=== PATIENT | female | born 1980 | race Caucasian/White ===

== ENCOUNTER 2016-04-02 14:24 | Emergency (ER) | payer OTHER ==
[2016-04-02] MEDS ORDERED: MORPHINE 2 MG/ML 1ML SYRINGE As Ordered ONE (15:10)
[2016-04-02] MEDS ORDERED: PROMETHAZINE INJ 25 MG/ML VIAL (J2550) As Ordered ONE (15:10)
--- NOTE | 2016-04-02 15:46 | REP ---
Head CT without contrast: History: Headache, foreign body. Comparison study: September 26, 2009. CT findings: Bone window settings demonstrate an intact bony calvarium. There is no evidence of skull fracture or incidental bony calvarial lesion. The visualized paranasal sinuses appear clear. No intraorbital abnormality is seen. On soft tissue window setting images; the lateral, third, and fourth ventricles are normal in size and position. Pierce-white differentiation pattern is normal above and below the tentorium. There are is no evidence of intracranial hemorrhage. No mass, edema, infarction, or midline shift is seen. No extra-axial fluid collection is appreciated. Impression: Negative noncontrast head CT. Signed by Nino Messer MD 04/02/2016 03:38 P
[2016-04-02 16:56] LABS: BASO # 0.1 K/mm3 (0.0-0.2); BASO % 0.8 % (0.0-1.0); EOS # 0.4 K/mm3 (0.0-0.50); EOS % 5.8 % (0.0-3.0); LARGE UNSTAINED CELL # 0.2 K/mm3 (0.0-0.4); LARGE UNSTAINED CELL % 2.3 % (0.0-4.0); LYMPH # 2.5 K/mm3 (1.5-4.5); LYMPH % 33.8 % (24.0-44.0); MEAN CORPUSCULAR HEMOGLOBIN 32.9 pg (27.0-33.0); MEAN CORPUSCULAR HGB CONC 34.4 g/dl (32.0-36.5); MEAN CORPUSCULAR VOLUME 95.8 fl (80.0-96.0); MONO # 0.3 K/mm3 (0.0-0.8); MONO % 4.4 % (0.0-5.0); NEUTROPHILS # 3.9 K/mm3 (1.8-7.7); NEUTROPHILS % 52.8 % (36.0-66.0); PLATELET COUNT, AUTOMATED 243 k/mm3 (150-450); RED CELL DISTRIBUTION WIDTH 12.1 % (11.5-14.5); WHITE BLOOD COUNT 7.3 K/mm3 (4.0-10.0)
[2016-04-02 16:57] LABS: ANION GAP 8 MEQ/L (8-16); BLOOD UREA NITROGEN 16 MG/DL (7-18); CALCIUM LEVEL 9.1 MG/DL (8.5-10.1); CARBON DIOXIDE LEVEL 27 MEQ/L (21-32); CHLORIDE LEVEL 107 MEQ/L (98-107); CREATININE FOR GFR 0.55 MG/DL (0.55-1.02); GLOMERULAR FILTRATION RATE > 60.0 (>60); GLUCOSE, FASTING 80 MG/DL (70-105); SODIUM LEVEL 142 MEQ/L (136-145)
--- NOTE | 2016-04-02 17:40 | EDDOCDS ---
Nurse's Notes [facility] Name: Briana Carmichael Age: 35 yrs Sex: Female : 1980 Arrival Date: 04/02/2016 Time: 14:24 Bed 6 Private MD: No Pcp Diagnosis: Headache Presentation: 04/02 14:31 Presenting complaint: Patient states: "My arm and my face is numb and it hurts. My eyes jc4 are blurry and stuff. It started at 1145 and it's just gotten worse". Presenting complaint: Patient states: that both sides of her face is numb and that her left arm is numb. Adult Sepsis Screening: The patient does not have new or worsening altered mentation. Patient's respiratory rate is less than 22. Systolic blood pressure is greater than 100. Patient has a qSOFA score of 0- Negative Sepsis Screen. Suicide/Homicide risk assessment- the patient denies having any suicidal and/or homicidal ideations and does not present with any other emotional, behavioral or mental health complaints. Status: Patient is not a consulting services associate or dependent. Transition of care: patient was not received from another setting of care. 14:31 Acuity: SAL Level 2 jc4 14:31 Method Of Arrival: Walkin/Carried/Asstd jc4 Triage Assessment: 14:33 General: Appears uncomfortable. Pain: Location: pain behind both eyes Pain currently is jc4 8 out of 10 on a pain scale. Pt Declines HIV testing. 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 none - PMHx: Hiatal Hernia; Migraine Headaches; - PSHx: Tubal ligation; - Social history: Smoking status: Patient uses tobacco products, light tobacco smoker. No barriers to communication noted, The patient speaks fluent Czech. - Family history: Not pertinent. - : The pt / caregiver states he / she is not on anticoagulants. Home medication list is obtained from the patient. - Exposure Risk Screening:: None identified. Screenin:47 Screening information is obtained from the patient. Fall risk: No risks identified. [facility] Assistance ADL's: requires no assistance with activities of daily living. Abuse/DV Screen: The patient / caregiver reports he/she is: not in a situation that causes fear, pain or injury. Nutritional screening: No deficits noted. Advance Directives: There is no active DNR order. home support is adequate. Assessment: 15:01 General: Appears in no apparent distress, comfortable, Behavior is appropriate for age, [facility] cooperative. Pain: Location: head Pain currently is 8 out of 10 on a pain scale. Neurological: Level of Consciousness is awake, alert, Oriented to person, place, time, Claim Analyst are equal bilaterally Moves all extremities. Gait is steady, Speech is normal, Facial symmetry appears normal, Facial symmetry: tongue is midline, Pupils are PERRLA. Respiratory: Airway is patent Respiratory effort is even, unlabored, Respiratory pattern is regular, symmetrical. GI: Abdomen is flat, non- distended Bowel sounds present X 4 quads. Abd is soft and non tender X 4 quads. Derm: Skin is pink, warm & dry. 15:20 General: transported to CT via tech. [facility] 15:46 General: returned from CT, tolerated well. [facility] 16:30 General: quiet in room, denies needs at present, awaiting results and further testing. [facility] 17:08 General: Appears in no apparent distress, pt states she has to leave, states she has 2 mk4 disabled children at home and she has to go home and take care of them, IV discontinued left AC . Vital Signs: 14:26 BP 122 / 67; Pulse 82; Resp 18 S; Temp 96.5(O); Pulse Ox 100% on R/A; Weight 49.9 kg gr2 (R); Height 5 ft. 1 in. (154.94 cm) (R); Pain 7/10; 14:45 BP 127 / 82 (auto/); [facility] 14:47 Pulse 74 MON; Pulse Ox 99% ; [facility] 15:20 Pain 8/10; jf3 16:00 BP 108 / 64 (auto/); mk4 16:01 Pulse 62 MON; Pulse Ox 99% ; mk4 16:15 BP 124 / 75 (auto/); mk4 16:15 Pulse 66 MON; Pulse Ox 99% ; mk4 16:30 BP 120 / 74 (auto/); mk4 16:31 Pulse 64 MON; Pulse Ox 99% ; mk4 16:45 BP 117 / 75 (auto/); mk4 16:46 Pulse 64 MON; Pulse Ox 100% ; mk4 14:26 Body Mass Index 20.78 (49.90 kg, 154.94 cm) gr2 Vitals: 14:26 Log In Time: April 02, 2016 at 14:26. RN notified that patient meets Red Flag gr2 criteria. 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 gr2 14:26 No Pcp is Private Physician. gr2 14:26 Patient moved to Waiting gr2 14:29 Patient visited by Sumanth Garay. gr2 14:29 Patient moved to Pre RCE gr2 14:32 Triage Initiated jc4 14:41 Patient moved to 6 [facility] 14:47 The patient / caregiver is instructed regarding the plan of care and ED course. Patient [facility] has correct armband on for positive identification. Placed in gown. Bed in low position. Call light in reach. Side rails up X2. hospital monitor on. Pulse ox on. Cardiac monitoring not applicable on this patient. 14:47 Inserted saline lock: 18 gauge in right antecubital area and blood collected. The [facility] patient tolerated the procedure well. Labs drawn. (by ED staff). Sent per order to lab. 15:12 EKG done. (by ED staff). Reviewed by Lori Oneill MD. ct3 15:13 Patient visited by Brook Alvarado PCA. ct3 15:46 Patient visited by Aurora Sales RN. [facility] 15:55 CT Head Without Contrast Returned. EDMS 16:30 Zach Mora MD is Attending Physician. br1 16:38 Patient visited by Zach Mora MD. br1 17:08 Patient visited by Miriam Pryor RN. mk4 17:10 [facility] [place] Payment Agreement was scanned into [email or web address] and attached to record. zo 17:29 Aurora Sales,JULIO is Primary Nurse. cj 17:38 [facility] is Referral Physician. br1 Administered Medications: 15:21 Drug: morphine 2 mg [morphine 2 mg/mL intravenous cartridge (1 mL)] Route: IVP; Site: 3 right antecubital; 15:25 Drug: Promethazine 12.5 mg [promethazine 25 mg/mL injection solution (0.5 mL)] Route: jf3 IVP; Site: right antecubital; 16:26 Follow up: finished infusion srm Intake: Order Results: Lab Order: CBC with Diff; SPEC'M 04/02/16 14:57 Test: WHITE BLOOD COUNT; Value: 7.3; Range: 4.0-10.0; Units: K/mm3; Status: F Test: RED BLOOD COUNT; Value: 4.15; Range: 4.00-5.40; Units: M/mm3; Status: F Test: HEMOGLOBIN; Value: 13.7; Range: 12.0-16.0; Units: g/dl; Status: F Test: HEMATOCRIT; Value: 39.7; Range: 36.0-47.0; Units: %; Status: F Test: MEAN CORPUSCULAR VOLUME; Value: 95.8; Range: 80.0-96.0; Units: fl; Status: F Test: MEAN CORPUSCULAR HEMOGLOBIN; Value: 32.9; Range: 27.0-33.0; Units: pg; Status: F Test: MEAN CORPUSCULAR HGB CONC; Value: 34.4; Range: 32.0-36.5; Units: g/dl; Status: F Test: RED CELL DISTRIBUTION WIDTH; Value: 12.1; Range: 11.5-14.5; Units: %; Status: F Test: PLATELET COUNT, AUTOMATED; Value: 243; Range: 150-450; Units: k/mm3; Status: F Test: NEUTROPHILS %; Value: 52.8; Range: 36.0-66.0; Units: %; Status: F Test: LYMPH %; Value: 33.8; Range: 24.0-44.0; Units: %; Status: F Test: MONO %; Value: 4.4; Range: 0.0-5.0; Units: %; Status: F Test: EOS %; Value: 5.8; Range: 0.0-3.0; Abnormal: Above high normal; Units: %; Status: F Test: BASO %; Value: 0.8; Range: 0.0-1.0; Units: %; Status: F Test: LARGE UNSTAINED CELL %; Value: 2.3; Range: 0.0-4.0; Units: %; Status: F Test: NEUTROPHILS #; Value: 3.9; Range: 1.8-7.7; Units: K/mm3; Status: F Test: LYMPH #; Value: 2.5; Range: 1.5-4.5; Units: K/mm3; Status: F Test: MONO #; Value: 0.3; Range: 0.0-0.8; Units: K/mm3; Status: F Test: EOS #; Value: 0.4; Range: 0.0-0.50; Units: K/mm3; Status: F Test: BASO #; Value: 0.1; Range: 0.0-0.2; Units: K/mm3; Status: F Test: LARGE UNSTAINED CELL #; Value: 0.2; Range: 0.0-0.4; Units: K/mm3; Status: F Lab Order: [facility]; SPEC'M 04/02/16 14:57 Test: GLUCOSE, FASTING; Value: 80; Range: 70-105; Units: MG/DL; Status: F Test: BLOOD UREA NITROGEN; Value: 16; Range: 7-18; Units: MG/DL; Status: F Test: CREATININE FOR GFR; Value: 0.55; Range: 0.55-1.02; Units: MG/DL; Status: F Test: GLOMERULAR FILTRATION RATE; Value: > 60.0; Range: >60; Status: F Test: SODIUM LEVEL; Value: 142; Range: 136-145; Units: MEQ/L; Status: F Test: POTASSIUM SERUM; Value: 4.0; Range: 3.5-5.1; Units: MEQ/L; Status: F Test: CHLORIDE LEVEL; Value: 107; Range: 98-107; Units: MEQ/L; Status: F Test: CARBON DIOXIDE LEVEL; Value: 27; Range: 21-32; Units: MEQ/L; Status: F Test: ANION GAP; Value: 8; Range: 8-16; Units: MEQ/L; Status: F Test: CALCIUM LEVEL; Value: 9.1; Range: 8.5-10.1; Units: MG/DL; Status: F Test Note: ; Units are mL/min/1.73 m2 Chronic Kidney Disease Staging per NKF: Stage I & II GFR >=60 Normal to Mildly Decreased Stage III GFR 30-59 Moderately Decreased Stage IV GFR 15-29 Severely Decreased Stage V GFR <15 Very Little GFR Left ESRD GFR <15 on 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 There; is no evidence of skull fracture or incidental bony calvarial lesion. The; visualized paranasal sinuses appear clear. No intraorbital abnormality is seen.; On soft tissue window setting images; the lateral, third, and fourth ventricles; are normal in size and position. Pierce-white differentiation pattern is normal; above and below the tentorium. There are is no evidence of intracranial; hemorrhage. No mass, edema, infarction, or midline shift is seen. No; extra-axial fluid collection is appreciated.; ; Impression:; ; Negative noncontrast head CT.; ; ; Signed by; Nino Messer MD 04/02/2016 03:38 P; Outcome: 17:09 Discharge Assessment: Patient awake, alert and oriented x 3. No cognitive and/or mk4 functional deficits noted. Patient verbalized understanding of disposition instructions. Patient awake and alert. The patient is leaving AMA: AMA form signed, Notification of AMA status is made to the charge nurse, the social worker health services, the ED attending physician. Condition: stable. Property sent home with patient. 17:38 Patient left against medical advice. br1 17:39 Patient left the ED. mk4 Signatures: Dispatcher [employer] EDMS Lisa Kulkarni, RN Andrew Chow Brian, MD MD br1 Tamar Dow RN RN jc4 Brook Alvarado, KASIA CLIENT SERVICE COORDINATOR ct3 Aurora SalesRN RN mmeo Sumanth Garay gr2 Miriam Pryor RN RN mk4 Ty Diaz RN RN jf3 MTDD
--- NOTE | 2016-04-02 17:40 | EDDOCDS ---
Physician Documentation [facility] Name: Briana Carmichael Age: 35 yrs Sex: Female : 1980 Arrival Date: 04/02/2016 Time: 14:24 Bed 6 Private MD: No Pcp Disposition: 04/02/16 17:38 Patient has left against medical advice. Impression: Headache. - Patients states they are going to Home/Self Care. - Condition is Stable. - Discharge Instructions: General Headache Without Cause. Medication Reconciliation, Local Pharmacy Hours form. Follow up: [facility]; When: As soon as possible; Reason: Recheck today's complaints. - Problem is new. - Symptoms are unchanged. Historical: - Allergies: Ibuprofen (Rash); - Home Meds: 1. none - PMHx: Hiatal Hernia; Migraine Headaches; - PSHx: Tubal ligation; - Social history: Smoking status: Patient uses tobacco products, light tobacco smoker. No barriers to communication noted, The patient speaks fluent [place]. - Family history: Not pertinent. - : The pt / caregiver states he / she is not on anticoagulants. Home medication list is obtained from the patient. - Exposure Risk Screening:: None identified. 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 1 in. 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 EDMS 15:06 morphine 2 mg IVP once ordered. fg 15:06 Promethazine 12.5 mg IVP once; dilute and administer 30-60 minutes ordered. fg 15:06 IV Saline Lock ordered. fg 15:07 CT Head Without Contrast Ordered. EDMS 16:38 NS 0.9% 1000 ml IV at 150 mL/hr continuous ordered. br1 16:39 CBC with Diff Ordered. EDMS 16:39 BMP Ordered. EDMS 16:39 MRI Screening Tool - Place on chart, inform RN ordered. br1 16:40 -MRA-Brain without contrast Ordered. EDMS 16:40 -MRI-Brain without Ordered. EDMS 16:51 MRI Screening Tool - Place on chart, inform RN complete. ct3 17:09 Financial registration complete. zo 17:10 [facility] Payment Agreement was scanned into [employer] and attached to record. zo 17:36 CBC with Diff Reviewed. br1 17:36 BMP Reviewed. br1 17:36 CT Head Without Contrast Reviewed. br1 Administered Medications: 15:21 Drug: morphine 2 mg [morphine 2 mg/mL intravenous cartridge (1 mL)] Route: IVP; Site: jf3 right antecubital; 15:25 Drug: Promethazine 12.5 mg [promethazine 25 mg/mL injection solution (0.5 mL)] Route: jf3 IVP; Site: right antecubital; 16:26 Follow up: finished infusion srm Signatures: Dispatcher [employer] EDMS Andrew Ash Brian, MD MD br1 Tamar Dow RN RN jc4 Brook Alvarado, RIGGING MAN RIGGING MAN ct3 Aurora Sales RN RN [facility] Miriam Pryor RN RN mk4 Lori Oneill MD MD Lisa Kulkarni RN, Justin RN jf3 The chart was reviewed and I authenticate all verbal orders and agree with the evaluation and treatment provided.Attachments: 17:10 [facility] Payment Agreement zo MTDD
--- NOTE | 2016-04-03 08:07 | ECGEPIP ---
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
--- NOTE | 2016-04-04 18:40 | EDDOCDS ---
Physician Documentation [facility] Name: Briana Carmichael Age: 35 yrs Sex: Female : 1980 Arrival Date: 04/02/2016 Time: 14:24 Bed 6 Private MD: No Pcp Disposition: 04/02/16 17:38 Patient has left against medical advice. Impression: Headache. - Patients states they are going to Home/Self Care. - Condition is Stable. - Discharge Instructions: General Headache Without Cause. Medication Reconciliation, Local Pharmacy Hours form. Follow up: [facility]; When: As soon as possible; Reason: Recheck today's complaints. - Problem is new. - Symptoms are unchanged. Historical: - Allergies: Ibuprofen (Rash); - Home Meds: 1. none - PMHx: Hiatal Hernia; Migraine Headaches; - PSHx: Tubal ligation; - Social history: Smoking status: Patient uses tobacco products, light tobacco smoker. No barriers to communication noted, The patient speaks fluent [place]serr[place]. - Family history: Not pertinent. - : The pt / caregiver states he / she is not on anticoagulants. Home medication list is obtained from the patient. - Exposure Risk Screening:: None identified. 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 1 in. 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 EDMS 15:06 morphine 2 mg IVP once ordered. fg 15:06 Promethazine 12.5 mg IVP once; dilute and administer 30-60 minutes ordered. fg 15:06 IV Saline Lock ordered. fg 15:07 CT Head Without Contrast Ordered. EDMS 16:38 NS 0.9% 1000 ml IV at 150 mL/hr continuous ordered. br1 16:39 CBC with Diff Ordered. EDMS 16:39 BMP Ordered. EDMS 16:39 MRI Screening Tool - Place on chart, inform RN ordered. br1 16:40 -MRA-Brain without contrast Ordered. EDMS 16:40 -MRI-Brain without Ordered. EDMS 16:51 MRI Screening Tool - Place on chart, inform RN complete. ct3 17:09 Financial registration complete. zo 17:10 [facility] [place] Agreement was scanned into [employer] and attached to record. zo 17:36 CBC with Diff Reviewed. br1 17:36 BMP Reviewed. br1 17:36 CT Head Without Contrast Reviewed. br1 04/03 11:45 Refusal of Services was scanned into [employer] and attached to record. gb 11:45 T-Sheet-- Draft Copy was scanned into [employer] and attached to record. gb 11:45 ECG/EKG was scanned into [employer] and attached to record. gb Administered Medications: 04/02 15:21 Drug: morphine 2 mg [morphine 2 mg/mL intravenous cartridge (1 mL)] Route: IVP; Site: jf3 right antecubital; 15:25 Drug: Promethazine 12.5 mg [promethazine 25 mg/mL injection solution (0.5 mL)] Route: jf3 IVP; Site: right antecubital; 16:26 Follow up: finished infusion srm Signatures: Dispatcher [employer] EDLili King, Reg Reg Andrew Finn Brian, MD MD br1 Tamar Dow, RN RN jc4 Jenny, Brook, RV REPAIRER RV REPAIRER ct3 Aurora SalesRN RN cj Miriam Pryor RN RN mk4 Lori Oneill MD MD Shad, Lisa RN [facility] yT Diaz RN jf3 The chart was reviewed and I authenticate all verbal orders and agree with the evaluation and treatment provided.Attachments: 17:10 [facility] Payment Agreement zo 11:45 T-Sheet-- Draft Copy gb 11:45 ECG/EKG gb Chart Complete MTDD
--- NOTE | 2016-04-04 18:40 | EDDOCDS ---
Physician Documentation [facility] Name: Briana Carmichael Age: 35 yrs Sex: Female : 1980 Arrival Date: 04/02/2016 Time: 14:24 Bed 6 Private MD: No Pcp Disposition: 04/02/16 17:38 Patient has left against medical advice. Impression: Headache. - Patients states they are going to Home/Self Care. - Condition is Stable. - Discharge Instructions: General Headache Without Cause. Medication Reconciliation, Local Pharmacy Hours form. Follow up: [facility]; When: As soon as possible; Reason: Recheck today's complaints. - Problem is new. - Symptoms are unchanged. Historical: - Allergies: Ibuprofen (Rash); - Home Meds: 1. none - PMHx: Hiatal Hernia; Migraine Headaches; - PSHx: Tubal ligation; - Social history: Smoking status: Patient uses tobacco products, light tobacco smoker. No barriers to communication noted, The patient speaks fluent Czech. - Family history: Not pertinent. - : The pt / caregiver states he / she is not on anticoagulants. Home medication list is obtained from the patient. - Exposure Risk Screening:: None identified. 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 1 in. 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 EDMS 15:06 morphine 2 mg IVP once ordered. fg 15:06 Promethazine 12.5 mg IVP once; dilute and administer 30-60 minutes ordered. fg 15:06 IV Saline Lock ordered. fg 15:07 CT Head Without Contrast Ordered. EDMS 16:38 NS 0.9% 1000 ml IV at 150 mL/hr continuous ordered. br1 16:39 CBC with Diff Ordered. EDMS 16:39 BMP Ordered. EDMS 16:39 MRI Screening Tool - Place on chart, inform RN ordered. br1 16:40 -MRA-Brain without contrast Ordered. EDMS 16:40 -MRI-Brain without Ordered. EDMS 16:51 MRI Screening Tool - Place on chart, inform RN complete. ct3 17:09 Financial registration complete. zo 17:10 [facility] [place] [place] Payment Agreement was scanned into [employer] and attached to record. zo 17:36 CBC with Diff Reviewed. br1 17:36 BMP Reviewed. br1 17:36 CT Head Without Contrast Reviewed. br1 04/03 11:45 Refusal of Services was scanned into [employer] and attached to record. gb 11:45 T-Sheet-- Draft Copy was scanned into [employer] and attached to record. gb 11:45 ECG/EKG was scanned into [employer] and attached to record. gb Administered Medications: 04/02 15:21 Drug: morphine 2 mg [morphine 2 mg/mL intravenous cartridge (1 mL)] Route: IVP; Site: jf3 right antecubital; 15:25 Drug: Promethazine 12.5 mg [promethazine 25 mg/mL injection solution (0.5 mL)] Route: jf3 IVP; Site: right antecubital; 16:26 Follow up: finished infusion srm Signatures: Dispatcher [employer] EDLili King, Reg Reg Andrew Finn Brian, MD MD br1 Tamar Dow, RN RN jc4 Jenny, Brook, LEAD TANK MECHANIC LEAD TANK MECHANIC ct3 Aurora SalesRN RN cj Miriam Pryor RN RN mk4 Lori Oneill MD MD Shad, Lisa RN [facility] Ty Diaz RN jf3 The chart was reviewed and I authenticate all verbal orders and agree with the evaluation and treatment provided.Attachments: 17:10 [facility] [place] [place] Payment Agreement zo 11:45 T-Sheet-- Draft Copy gb 11:45 ECG/EKG gb Chart Complete MTDD
--- NOTE | 2016-04-04 18:40 | EDDOCDS ---
Nurse's Notes [facility] Name: Jessa Carmichael Age: 35 yrs Sex: Female : 1980 Arrival Date: 04/02/2016 Time: 14:24 Bed 6 Private MD: No Pcp Diagnosis: Headache Presentation: 04/02 14:31 Presenting complaint: Patient states: "My arm and my face is numb and it hurts. My eyes jc4 are blurry and stuff. It started at 1145 and it's just gotten worse". Presenting complaint: Patient states: that both sides of her face is numb and that her left arm is numb. Adult Sepsis Screening: The patient does not have new or worsening altered mentation. Patient's respiratory rate is less than 22. Systolic blood pressure is greater than 100. Patient has a qSOFA score of 0- Negative Sepsis Screen. Suicide/Homicide risk assessment- the patient denies having any suicidal and/or homicidal ideations and does not present with any other emotional, behavioral or mental health complaints. Status: Patient is not a clinical services professional or dependent. Transition of care: patient was not received from another setting of care. 14:31 Acuity: SAL Level 2 jc4 14:31 Method Of Arrival: Walkin/Carried/Asstd jc4 Triage Assessment: 14:33 General: Appears uncomfortable. Pain: Location: pain behind both eyes Pain currently is jc4 8 out of 10 on a pain scale. Pt Declines HIV testing. 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 none - PMHx: Hiatal Hernia; Migraine Headaches; - PSHx: Tubal ligation; - Social history: Smoking status: Patient uses tobacco products, light tobacco smoker. No barriers to communication noted, The patient speaks fluent Urdu. - Family history: Not pertinent. - : The pt / caregiver states he / she is not on anticoagulants. Home medication list is obtained from the patient. - Exposure Risk Screening:: None identified. Screenin:47 Screening information is obtained from the patient. Fall risk: No risks identified. [facility] Assistance ADL's: requires no assistance with activities of daily living. Abuse/DV Screen: The patient / caregiver reports he/she is: not in a situation that causes fear, pain or injury. Nutritional screening: No deficits noted. Advance Directives: There is no active DNR order. home support is adequate. Assessment: 15:01 General: Appears in no apparent distress, comfortable, Behavior is appropriate for age, [facility] cooperative. Pain: Location: head Pain currently is 8 out of 10 on a pain scale. Neurological: Level of Consciousness is awake, alert, Oriented to person, place, time, Branch Manager are equal bilaterally Moves all extremities. Gait is steady, Speech is normal, Facial symmetry appears normal, Facial symmetry: tongue is midline, Pupils are PERRLA. Respiratory: Airway is patent Respiratory effort is even, unlabored, Respiratory pattern is regular, symmetrical. GI: Abdomen is flat, non- distended Bowel sounds present X 4 quads. Abd is soft and non tender X 4 quads. Derm: Skin is pink, warm & dry. 15:20 General: transported to CT via tech. [facility] 15:46 General: returned from CT, tolerated well. [facility] 16:30 General: quiet in room, denies needs at present, awaiting results and further testing. [facility] 17:08 General: Appears in no apparent distress, pt states she has to leave, states she has 2 mk4 disabled children at home and she has to go home and take care of them, IV discontinued left AC . Vital Signs: 14:26 BP 122 / 67; Pulse 82; Resp 18 S; Temp 96.5(O); Pulse Ox 100% on R/A; Weight 49.9 kg gr2 (R); Height 5 ft. 1 in. (154.94 cm) (R); Pain 7/10; 14:45 BP 127 / 82 (auto/); [facility] 14:47 Pulse 74 MON; Pulse Ox 99% ; [facility] 15:20 Pain 8/10; jf3 16:00 BP 108 / 64 (auto/); mk4 16:01 Pulse 62 MON; Pulse Ox 99% ; mk4 16:15 BP 124 / 75 (auto/); mk4 16:15 Pulse 66 MON; Pulse Ox 99% ; mk4 16:30 BP 120 / 74 (auto/); mk4 16:31 Pulse 64 MON; Pulse Ox 99% ; mk4 16:45 BP 117 / 75 (auto/); mk4 16:46 Pulse 64 MON; Pulse Ox 100% ; mk4 14:26 Body Mass Index 20.78 (49.90 kg, 154.94 cm) gr2 Vitals: 14:26 Log In Time: April 02, 2016 at 14:26. RN notified that patient meets Red Flag gr2 criteria. 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 gr2 14:26 No Pcp is Private Physician. gr2 14:26 Patient moved to Waiting gr2 14:29 Patient visited by Sumanth Garay. gr2 14:29 Patient moved to Pre RCE gr2 14:32 Triage Initiated jc4 14:41 Patient moved to 6 [facility] 14:47 The patient / caregiver is instructed regarding the plan of care and ED course. Patient [facility] has correct armband on for positive identification. Placed in gown. Bed in low position. Call light in reach. Side rails up X2. radiation monitor on. Pulse ox on. Cardiac monitoring not applicable on this patient. 14:47 Inserted saline lock: 18 gauge in right antecubital area and blood collected. The [facility] patient tolerated the procedure well. Labs drawn. (by ED staff). Sent per order to lab. 15:12 EKG done. (by ED staff). Reviewed by Lori Oneill MD. ct3 15:13 Patient visited by Brook Alvarado PCA. ct3 15:46 Patient visited by Aurora Sales,JULIO. [facility] 15:55 CT Head Without Contrast Returned. EDMS 16:30 Zach Mora MD is Attending Physician. br1 16:38 Patient visited by aZch Mora MD. br1 17:08 Patient visited by Miriam Pryor RN. mk4 17:10 [facility] Payment Agreement was scanned into [employer] and attached to record. zo 17:29 Aurora Sales,RN is Primary Nurse. cj 17:38 [facility] is Referral Physician. br1 04/03 08:09 EKG-ADULT Returned. EDMS 11:45 Refusal of Services was scanned into [employer] and attached to record. gb 11:45 T-Sheet-- Draft Copy was scanned into [employer] and attached to record. 11:45 ECG/EKG was scanned into [employer] and attached to record. gb Administered Medications: 04/02 15:21 Drug: morphine 2 mg [morphine 2 mg/mL intravenous cartridge (1 mL)] Route: IVP; Site: 3 right antecubital; 15:25 Drug: Promethazine 12.5 mg [promethazine 25 mg/mL injection solution (0.5 mL)] Route: jf3 IVP; Site: right antecubital; 16:26 Follow up: finished infusion srm Attachments: 04/03 11:45 Refusal of Services gb Intake: Order Results: Lab Order: CBC with Diff; SPEC'M 04/02/16 14:57 Test: WHITE BLOOD COUNT; Value: 7.3; Range: 4.0-10.0; Units: K/mm3; Status: F Test: RED BLOOD COUNT; Value: 4.15; Range: 4.00-5.40; Units: M/mm3; Status: F Test: HEMOGLOBIN; Value: 13.7; Range: 12.0-16.0; Units: g/dl; Status: F Test: HEMATOCRIT; Value: 39.7; Range: 36.0-47.0; Units: %; Status: F Test: MEAN CORPUSCULAR VOLUME; Value: 95.8; Range: 80.0-96.0; Units: fl; Status: F Test: MEAN CORPUSCULAR HEMOGLOBIN; Value: 32.9; Range: 27.0-33.0; Units: pg; Status: F Test: MEAN CORPUSCULAR HGB CONC; Value: 34.4; Range: 32.0-36.5; Units: g/dl; Status: F Test: RED CELL DISTRIBUTION WIDTH; Value: 12.1; Range: 11.5-14.5; Units: %; Status: F Test: PLATELET COUNT, AUTOMATED; Value: 243; Range: 150-450; Units: k/mm3; Status: F Test: NEUTROPHILS %; Value: 52.8; Range: 36.0-66.0; Units: %; Status: F Test: LYMPH %; Value: 33.8; Range: 24.0-44.0; Units: %; Status: F Test: MONO %; Value: 4.4; Range: 0.0-5.0; Units: %; Status: F Test: EOS %; Value: 5.8; Range: 0.0-3.0; Abnormal: Above high normal; Units: %; Status: F Test: BASO %; Value: 0.8; Range: 0.0-1.0; Units: %; Status: F Test: LARGE UNSTAINED CELL %; Value: 2.3; Range: 0.0-4.0; Units: %; Status: F Test: NEUTROPHILS #; Value: 3.9; Range: 1.8-7.7; Units: K/mm3; Status: F Test: LYMPH #; Value: 2.5; Range: 1.5-4.5; Units: K/mm3; Status: F Test: MONO #; Value: 0.3; Range: 0.0-0.8; Units: K/mm3; Status: F Test: EOS #; Value: 0.4; Range: 0.0-0.50; Units: K/mm3; Status: F Test: BASO #; Value: 0.1; Range: 0.0-0.2; Units: K/mm3; Status: F Test: LARGE UNSTAINED CELL #; Value: 0.2; Range: 0.0-0.4; Units: K/mm3; Status: F Lab Order: [facility]; SPEC'M 04/02/16 14:57 Test: GLUCOSE, FASTING; Value: 80; Range: 70-105; Units: MG/DL; Status: F Test: BLOOD UREA NITROGEN; Value: 16; Range: 7-18; Units: MG/DL; Status: F Test: CREATININE FOR GFR; Value: 0.55; Range: 0.55-1.02; Units: MG/DL; Status: F Test: GLOMERULAR FILTRATION RATE; Value: > 60.0; Range: >60; Status: F Test: SODIUM LEVEL; Value: 142; Range: 136-145; Units: MEQ/L; Status: F Test: POTASSIUM SERUM; Value: 4.0; Range: 3.5-5.1; Units: MEQ/L; Status: F Test: CHLORIDE LEVEL; Value: 107; Range: 98-107; Units: MEQ/L; Status: F Test: CARBON DIOXIDE LEVEL; Value: 27; Range: 21-32; Units: MEQ/L; Status: F Test: ANION GAP; Value: 8; Range: 8-16; Units: MEQ/L; Status: F Test: CALCIUM LEVEL; Value: 9.1; Range: 8.5-10.1; Units: MG/DL; Status: F Test Note: ; Units are mL/min/1.73 m2 Chronic Kidney Disease Staging per NKF: Stage I & II GFR >=60 Normal to Mildly Decreased Stage III GFR 30-59 Moderately Decreased Stage IV GFR 15-29 Severely Decreased Stage V GFR <15 Very Little GFR Left ESRD GFR <15 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 Order: EKG-ADULT Test: EKG-ADULT REASON FOR EXAMINATION: numbness of face and arm; Stationary ECG Study; [facility] - ED; ; Test Date: 2016-04-02; Pat Name: JESSA CARMICHAEL Department:; Room: -; 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; : 1980 Requested By: LORI Guardado; Order Number: [id number] Reading MD: Jeannnie Smith; Measurements; Intervals [place]; Rate: 69 P: 62; KS: 139 QRS: 72; QRSD: 86 T: 60; QT: 379; QTc: 407; Interpretive Statements; SINUS RHYTHM; NO PRIOR FOR COMPARISON; Electronically Signed On 04-03-2016 8:06:56 EST by Jeannine Smith; 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 There; is no evidence of skull fracture or incidental bony calvarial lesion. The; visualized paranasal sinuses appear clear. No intraorbital abnormality is seen.; On soft tissue window setting images; the lateral, third, and fourth ventricles; are normal in size and position. Pierce-white differentiation pattern is normal; above and below the tentorium. There are is no evidence of intracranial; hemorrhage. No mass, edema, infarction, or midline shift is seen. No; extra-axial fluid collection is appreciated.; ; Impression:; ; Negative noncontrast head CT.; ; ; Signed by; Nino Messer MD 04/02/2016 03:38 P; Outcome: 04/02 17:09 Discharge Assessment: Patient awake, alert and oriented x 3. No cognitive and/or mk4 functional deficits noted. Patient verbalized understanding of disposition instructions. Patient awake and alert. The patient is leaving AMA: AMA form signed, Notification of AMA status is made to the charge nurse, the social studies teacher, the ED attending physician. Condition: stable. Property sent home with patient. 17:38 Patient left against medical advice. br1 17:39 Patient left the ED. mk4 Signatures: Dispatcher [employer] EDMS Lisa Kulkarni, RN RN Lili Wesley, Andrew Gomez Brian, MD MD br1 Tamar Dow RN RN jc4 Brook Alvarado, MACHINE HEDDLE CLEANER MACHINE HEDDLE CLEANER ct3 Aurora SalesRN RN [facility] Sumanth Garay 2 Miriam Pryor RN RN mk4 Ty Diaz,RN RN jf3 Chart Complete EZEQUIEL
== END 2016-04-02 17:10 | disposition left against medical advice (07) ==
LOC: M ED 14:24
DX: R51 Headache (principal); K44.9 Diaphragmatic hernia without obstruction or gangrene; F17.200 Nicotine dependence, unspecified, uncomplicated; Z88.6 Allergy status to analgesic agent

== ENCOUNTER 2016-05-04 07:31 | Emergency (ER) | payer OTHER ==
--- NOTE | 2016-05-04 07:58 | EDDOCDS ---
Physician Documentation [facility] Name: Briana Carmichael Age: 35 yrs Sex: Female : 1980 Arrival Date: 05/04/2016 Time: 07:31 Bed I5 / M5 Private MD: Disposition: 05/04/16 07:49 Discharged to Home/Self Care. Impression: Jaw pain - with associated dental pain in multiple teeth. - Condition is Stable. - Discharge Instructions: Dental Pain. - Prescriptions for Clindamycin HCl 300 mg Oral Capsule - take 1 capsule by ORAL route every 6 hours; 40 capsule. Percocet 5- 325 mg Oral Tablet - take 1 tablet by ORAL route every 6 hours As needed MDD: 4 tabs; 20 tablet. - Medication Reconciliation, Work Release Form - 1 day, Local Pharmacy Hours form. - Follow up: Emergency Department; When: As needed; Reason: Worsening of conditions. Follow up: Roberto Soriano; When: Call to arrange an appointment; Reason: Wound/Symptom Recheck, Recheck today's complaints, Continuance of care, To establish care. Follow up: Vitor Campos MD; When: Call to arrange an appointment; Reason: Wound/Symptom Recheck, Recheck today's complaints, Continuance of care, To establish care. - Problem is new. - Symptoms are unchanged. Historical: - Allergies: Ibuprofen (Rash); - Home Meds: 1. acetaminophen-codeine 300-30 mg Oral tab took last one prescribed (Last dose: 05/03/2016) - PMHx: Hiatal Hernia; Migraine Headaches; - PSHx: Tubal ligation; - Social history: Smoking status: Patient uses tobacco products, current every day smoker. No barriers to communication noted, The patient speaks fluent Estonian. - Family history: Not pertinent. - : The pt / caregiver states he / she is not on anticoagulants. Home medication list is obtained from the patient. - Exposure Risk Screening:: None identified. 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 1 in. (154.94 cm) (R); Pain 12/25; 07:36 Body Mass Index 20.78 (49.90 kg, 154.94 cm) kandice MDM: 07:52 Financial registration complete. mm15 Signatures: Daphne Garay RN RN jjr Strong, Shannon, RN RN sls1 Piper Patel mm15 Kadi Cisneros PA-C PA-C dt4 MTDD
--- NOTE | 2016-05-04 07:58 | EDDOCDS ---
Nurse's Notes [facility] Name: Briana Carmichael Age: 35 yrs Sex: Female : 1980 Arrival Date: 05/04/2016 Time: 07:31 Bed I5 / M5 Private MD: Diagnosis: Jaw pain-with associated dental pain in multiple teeth Presentation: 05/04 07:34 Presenting complaint: Patient states: pain to upper and lower jaw since yesterday jjr morning, attempting to have all teeth pulled but having difficulty with insurance. Adult Sepsis Screening: The patient does not have new or worsening altered mentation. Patient's respiratory rate is less than 22. Systolic blood pressure is greater than 100. Patient has a qSOFA score of 0- Negative Sepsis Screen. Suicide/Homicide risk assessment- the patient denies having any suicidal and/or homicidal ideations and does not present with any other emotional, behavioral or mental health complaints. Status: Patient is not a mountain services manager or dependent. Transition of care: patient was not received from another setting of care. 07:34 Acuity: SAL Level 4 jjr 07:34 Method Of Arrival: Walkin/Carried/Asstd jjr Triage Assessment: 07:38 General: Appears uncomfortable, Behavior is crying. Pain: Location: right jaw and left jjr jaw. HIV screening NA for this visit Offered previously. 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 acetaminophen-codeine 300-30 mg Oral tab took last one prescribed (Last dose: 05/03/2016) - PMHx: Hiatal Hernia; Migraine Headaches; - PSHx: Tubal ligation; - Social history: Smoking status: Patient uses tobacco products, current every day smoker. No barriers to communication noted, The patient speaks fluent Georgian. - Family history: Not pertinent. - : The pt / caregiver states he / she is not on anticoagulants. Home medication list is obtained from the patient. - Exposure Risk Screening:: None identified. Screenin:54 Screening information is obtained from the patient. Fall risk: No risks identified. sls1 Assistance ADL's: requires no assistance with activities of daily living. Abuse/DV Screen: The patient / caregiver reports he/she is: not in a situation that causes fear, pain or injury. Nutritional screening: No deficits noted. Advance Directives: Further advance directive information is declined. home support is adequate. Assessment: 07:54 General: Appears in no apparent distress, Behavior is appropriate for age, cooperative, sls1 Discharge instructions reviewed with pt including medication use, no drinking or driving with medications, and follow up care, pt verbalizes understanding of all instructions. Pain: Location: mouth Pain currently is 9 out of 10 on a pain scale. Neurological: No deficits noted. Respiratory: Airway is patent Respiratory effort is even, unlabored, Respiratory pattern is regular, symmetrical. Derm: No deficits noted. Vital Signs: 07:36 BP 138 / 69; Pulse 102; Resp 20; Temp 98.7(TE); Pulse Ox 98% on R/A; Weight 49.9 kg [facility] (R); Height 5 ft. 1 in. (154.94 cm) (R); Pain 10/10; 07:36 Body Mass Index 20.78 (49.90 kg, 154.94 cm) [facility] Vitals: 07:36 Log In Time: May 04, 2016 at 07:30. [facility] ED Course: 07:32 Patient visited by Miko Romeo Reg. lg 07:32 Patient moved to Waiting lg 07:35 Triage Initiated r 07:39 Kadi Cisneros PA-C [facility] dt4 07:39 Lori Oneill MD is Attending Physician. dt4 07:39 Patient visited by Kadi Cisneros PA-C. dt4 07:39 [facility] 07:47 Roberto Soriano is Referral Physician. dt4 07:48 Vitor Campos MD is Referral Physician. dt4 07:54 The patient / caregiver is instructed regarding the plan of care and ED course. Patient sls1 has correct armband on for positive identification. 07:54 No IV's were initiated during this patient's visit. No procedures done that require sls1 assistance. Order Results: There are currently no results for this order. Outcome: 07:49 Discharge ordered by Provider. dt4 07:54 Discharge Assessment: Patient awake, alert and oriented x 3. No cognitive and/or sls1 functional deficits noted. Patient verbalized understanding of disposition instructions. patient administered narcotics - no. The following High Risk Discharge criteria are identified: None. Discharged to home ambulatory. Condition: stable. Discharge instructions given to patient, Instructed on discharge instructions, follow up and referral plans. medication usage, Demonstrated understanding of instructions, medications, Pt was receptive of discharge instructions/ teaching. Prescriptions given X 2, Work note provided to patient. No special radiology studies were completed. Property :Personal belongings accompany Pt. 07:57 Patient left the ED. sls1 Signatures: Miko Romeo, Reg Reg lg Daphne Garay RN RN Martha Temple RN RN sls1 Kadi Cisneros, PA-C PA-C dt4 MTDD
--- NOTE | 2016-05-06 08:58 | EDDOCDS ---
Nurse's Notes [facility] Name: Briana Carmichael Age: 35 yrs Sex: Female : 1980 Arrival Date: 05/04/2016 Time: 07:31 Bed I5 / M5 Private MD: Diagnosis: Jaw pain-with associated dental pain in multiple teeth Presentation: 05/04 07:34 Presenting complaint: Patient states: pain to upper and lower jaw since yesterday jjr morning, attempting to have all teeth pulled but having difficulty with insurance. Adult Sepsis Screening: The patient does not have new or worsening altered mentation. Patient's respiratory rate is less than 22. Systolic blood pressure is greater than 100. Patient has a qSOFA score of 0- Negative Sepsis Screen. Suicide/Homicide risk assessment- the patient denies having any suicidal and/or homicidal ideations and does not present with any other emotional, behavioral or mental health complaints. Status: Patient is not a emergency services professional or dependent. Transition of care: patient was not received from another setting of care. 07:34 Acuity: SAL Level 4 jjr 07:34 Method Of Arrival: Walkin/Carried/Asstd jjr Triage Assessment: 07:38 General: Appears uncomfortable, Behavior is crying. Pain: Location: right jaw and left jjr jaw. HIV screening NA for this visit Offered previously. 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 acetaminophen-codeine 300-30 mg Oral tab took last one prescribed (Last dose: 05/03/2016) - PMHx: Hiatal Hernia; Migraine Headaches; - PSHx: Tubal ligation; - Social history: Smoking status: Patient uses tobacco products, current every day smoker. No barriers to communication noted, The patient speaks fluent Bahraini. - Family history: Not pertinent. - : The pt / caregiver states he / she is not on anticoagulants. Home medication list is obtained from the patient. - Exposure Risk Screening:: None identified. Screenin:54 Screening information is obtained from the patient. Fall risk: No risks identified. sls1 Assistance ADL's: requires no assistance with activities of daily living. Abuse/DV Screen: The patient / caregiver reports he/she is: not in a situation that causes fear, pain or injury. Nutritional screening: No deficits noted. Advance Directives: Further advance directive information is declined. home support is adequate. Assessment: 07:54 General: Appears in no apparent distress, Behavior is appropriate for age, cooperative, sls1 Discharge instructions reviewed with pt including medication use, no drinking or driving with medications, and follow up care, pt verbalizes understanding of all instructions. Pain: Location: mouth Pain currently is 9 out of 10 on a pain scale. Neurological: No deficits noted. Respiratory: Airway is patent Respiratory effort is even, unlabored, Respiratory pattern is regular, symmetrical. Derm: No deficits noted. Vital Signs: 07:36 BP 138 / 69; Pulse 102; Resp 20; Temp 98.7(TE); Pulse Ox 98% on R/A; Weight 49.9 kg j (R); Height 5 ft. 1 in. (154.94 cm) (R); Pain 10/10; 07:36 Body Mass Index 20.78 (49.90 kg, 154.94 cm) [facility] Vitals: 07:36 Log In Time: May 04, 2016 at 07:30. [facility] ED Course: 07:32 Patient visited by Miko Romeo Reg. lg 07:32 Patient moved to Waiting lg 07:35 Triage Initiated r 07:39 K[facility] Cisneros [facility] dt4 07:39 Lori Oneill MD is Attending Physician. dt4 07:39 Patient visited by Kadi Cisneros PA-C. dt4 07:39 [facility] Roberto Soriano is Referral Physician. dt4 07:48 Vitor Campos MD is Referral Physician. dt4 07:54 The patient / caregiver is instructed regarding the plan of care and ED course. Patient sls1 has correct armband on for positive identification. 07:54 No IV's were initiated during this patient's visit. No procedures done that require sls1 assistance. 07:59 [facility] Payment Agreement was scanned into [employer] and attached to record. mm15 14:54 T-Sheet-- Draft Copy was scanned into [employer] and attached to record. gb Order Results: There are currently no results for this order. Outcome: 07:49 Discharge ordered by Provider. dt4 07:54 Discharge Assessment: Patient awake, alert and oriented x 3. No cognitive and/or sls1 functional deficits noted. Patient verbalized understanding of disposition instructions. patient administered narcotics - no. The following High Risk Discharge criteria are identified: None. Discharged to home ambulatory. Condition: stable. Discharge instructions given to patient, Instructed on discharge instructions, follow up and referral plans. medication usage, Demonstrated understanding of instructions, medications, Pt was receptive of discharge instructions/ teaching. Prescriptions given X 2, Work note provided to patient. No special radiology studies were completed. Property :Personal belongings accompany Pt. 07:57 Patient left the ED. sls1 Signatures: Lili Price, Reg Reg gb Miko Romeo, Reg Reg lg Daphne Garay RN Martha Castillo RN RN sls1 Piper Patel mm15 Kadi Cisneros, EMELI PATammy dt4 Chart Complete MTDD
--- NOTE | 2016-05-06 08:58 | EDDOCDS ---
Physician Documentation [facility] Name: Briana Carmichael Age: 35 yrs Sex: Female : 1980 Arrival Date: 05/04/2016 Time: 07:31 Bed I5 / M5 Private MD: Disposition: 05/04/16 07:49 Discharged to Home/Self Care. Impression: Jaw pain - with associated dental pain in multiple teeth. - Condition is Stable. - Discharge Instructions: Dental Pain. - Prescriptions for Clindamycin HCl 300 mg Oral Capsule - take 1 capsule by ORAL route every 6 hours; 40 capsule. Percocet 5- 325 mg Oral Tablet - take 1 tablet by ORAL route every 6 hours As needed MDD: 4 tabs; 20 tablet. - Medication Reconciliation, Work Release Form - 1 day, Local Pharmacy Hours form. - Follow up: Emergency Department; When: As needed; Reason: Worsening of conditions. Follow up: Roberto Soriano; When: Call to arrange an appointment; Reason: Wound/Symptom Recheck, Recheck today's complaints, Continuance of care, To establish care. Follow up: Vitor Campos MD; When: Call to arrange an appointment; Reason: Wound/Symptom Recheck, Recheck today's complaints, Continuance of care, To establish care. - Problem is new. - Symptoms are unchanged. Historical: - Allergies: Ibuprofen (Rash); - Home Meds: 1. acetaminophen-codeine 300-30 mg Oral tab took last one prescribed (Last dose: 05/03/2016) - PMHx: Hiatal Hernia; Migraine Headaches; - PSHx: Tubal ligation; - Social history: Smoking status: Patient uses tobacco products, current every day smoker. No barriers to communication noted, The patient speaks fluent Qatari. - Family history: Not pertinent. - : The pt / caregiver states he / she is not on anticoagulants. Home medication list is obtained from the patient. - Exposure Risk Screening:: None identified. 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 1 in. (154.94 cm) (R); Pain 12/25; 07:36 Body Mass Index 20.78 (49.90 kg, 154.94 cm) kandice MDM: 07:52 Financial registration complete. mm15 07:59 [facility] Payment Agreement was scanned into [employer] and attached to record. mm15 14:54 T-Sheet-- Draft Copy was scanned into [employer] and attached to record. gb Signatures: Lili Price, Reg Reg gb Daphne Garay RN RN Martha Temple RN RN sls1 Piper Patel mm15 Kadi Cisneros PA-C PA-C dt4 The chart was reviewed and I authenticate all verbal orders and agree with the evaluation and treatment provided.Attachments: 07:59 [facility] Payment Agreement mm15 14:54 T-Sheet-- Draft Copy gb Chart Complete MTDD
--- NOTE | 2016-05-06 08:58 | EDDOCDS ---
Physician Documentation [facility] Name: Briana Carmichael Age: 35 yrs Sex: Female : 1980 Arrival Date: 05/04/2016 Time: 07:31 Bed I5 / M5 Private MD: Disposition: 05/04/16 07:49 Discharged to Home/Self Care. Impression: Jaw pain - with associated dental pain in multiple teeth. - Condition is Stable. - Discharge Instructions: Dental Pain. - Prescriptions for Clindamycin HCl 300 mg Oral Capsule - take 1 capsule by ORAL route every 6 hours; 40 capsule. Percocet 5- 325 mg Oral Tablet - take 1 tablet by ORAL route every 6 hours As needed MDD: 4 tabs; 20 tablet. - Medication Reconciliation, Work Release Form - 1 day, Local Pharmacy Hours form. - Follow up: Emergency Department; When: As needed; Reason: Worsening of conditions. Follow up: Roberto Soriano; When: Call to arrange an appointment; Reason: Wound/Symptom Recheck, Recheck today's complaints, Continuance of care, To establish care. Follow up: Vitor Campos MD; When: Call to arrange an appointment; Reason: Wound/Symptom Recheck, Recheck today's complaints, Continuance of care, To establish care. - Problem is new. - Symptoms are unchanged. Historical: - Allergies: Ibuprofen (Rash); - Home Meds: 1. acetaminophen-codeine 300-30 mg Oral tab took last one prescribed (Last dose: 05/03/2016) - PMHx: Hiatal Hernia; Migraine Headaches; - PSHx: Tubal ligation; - Social history: Smoking status: Patient uses tobacco products, current every day smoker. No barriers to communication noted, The patient speaks fluent Somali. - Family history: Not pertinent. - : The pt / caregiver states he / she is not on anticoagulants. Home medication list is obtained from the patient. - Exposure Risk Screening:: None identified. 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 1 in. (154.94 cm) (R); Pain 12/25; 07:36 Body Mass Index 20.78 (49.90 kg, 154.94 cm) kandice MDM: 07:52 Financial registration complete. mm15 07:59 [facility] Payment Agreement was scanned into [employer] and attached to record. mm15 14:54 T-Sheet-- Draft Copy was scanned into [employer] and attached to record. gb Signatures: Lili Price, Reg Reg gb Daphne Garay RN RN Martha Temple RN RN sls1 Piper Patel mm15 Kadi Cisneros PA-C PA-C dt4 The chart was reviewed and I authenticate all verbal orders and agree with the evaluation and treatment provided.Attachments: 07:59 [facility] Payment Agreement mm15 14:54 T-Sheet-- Draft Copy gb Chart Complete MTDD
== END 2016-05-04 07:57 | disposition home or self-care (01) ==
LOC: M ED 07:31
DX: R68.84 Jaw pain (principal); K08.89 Other specified disorders of teeth and supporting structures; K44.9 Diaphragmatic hernia without obstruction or gangrene; G43.909 Migraine, unspecified, not intractable, without status migrainosus; Z72.0 Tobacco use; Z88.6 Allergy status to analgesic agent

== ENCOUNTER 2016-06-14 10:40 | Emergency (ER) | payer OTHER ==
[~2016-06-14] VITALS: Ht 154.9 cm; Wt 49.9 kg
[2016-06-14] MEDS ORDERED: GI COCKTAIL 50ML BTL(HYOSCYAMINE/MAALOX/LIDOCAINE VISCOUS)(1:3:1) PO ONE (11:15)
[2016-06-14] MEDS ORDERED: ONDANSETRON 4 MG ORAL DISINTEGRATING TAB (S0181) PO ONE (11:15)
[2016-06-14] MEDS ORDERED: ZOFR4TAB3 PO (11:25)
[2016-06-14] MEDS ORDERED: PRIL20CA9 PO (11:25)
[2016-06-14 11:33] VITALS: BP 114/72
== END 2016-06-14 11:37 | disposition home or self-care (01) ==
LOC: M ED 11:33
DX: K21.9 Gastro-esophageal reflux disease without esophagitis (principal); R11.10 Vomiting, unspecified; F17.210 Nicotine dependence, cigarettes, uncomplicated; Z88.6 Allergy status to analgesic agent

== ENCOUNTER 2016-08-31 08:49 | Emergency (ER) | payer OTHER ==
[~2016-08-31] VITALS: Ht 154.9 cm; Wt 49.5 kg
[2016-08-31 08:49] VITALS: BP 142/86
[~2016-08-31 08:49] MED LIST: PRIL20CA9 PO; ZOFR4TAB3 PO
[2016-08-31] MEDS ORDERED: TYLE325T5 PO (09:03)
[2016-08-31] MEDS ORDERED: AUGM875T27 PO (10:27)
[2016-08-31] MEDS ORDERED: ULTR50TA PO (10:27)
== END 2016-08-31 10:36 | disposition home or self-care (01) ==
LOC: M ED 10:06
DX: K04.7 Periapical abscess without sinus (principal); K02.9 Dental caries, unspecified; F17.200 Nicotine dependence, unspecified, uncomplicated; Z79.899 Other long term (current) drug therapy; Z88.6 Allergy status to analgesic agent

== ENCOUNTER → 2016-09-27 | Outpatient (CLI) | payer OTHER ==
[~2016-09-27] MED LIST changes: +AUGM875T28 PO; +CLEO150C PO; +TYLE325T5 PO; +ULTR50TA8 PO
--- NOTE | 2016-09-28 06:32 | REP ---
Clinical: Trauma. Crush injury third digit. Technique: AP, lateral, bilateral oblique views right hand . Findings: The osseous structures and joint spaces are intact and normal. There is no evidence for acute fracture or dislocation. Soft tissue swelling and small laceration overlies the third distal phalanx. No subcutaneous emphysema or radiodense foreign body. Impression: Soft tissue injury overlies the third digit distal phalanx. No acute fracture or dislocation. Signed by Rashawn Mei MD 09/28/2016 04:05 A
== END ==
LOC: M WUC 09:44
PROVIDERS: ATTEND Physician Assistant
DX: S67.192A Crushing injury of right middle finger, initial encounter (principal); M79.641 Pain in right hand; W23.1XXA Caught, crushed, jammed, or pinched between stationary objects, initial encounter; Y92.89 Other specified places as the place of occurrence of the external cause; Y93.89 Activity, other specified; Y99.0 Civilian activity done for income or pay

== ENCOUNTER 2016-11-09 07:57 | Emergency (ER) | payer OTHER ==
[~2016-11-09] VITALS: Ht 154.9 cm; Wt 50.0 kg
[~2016-11-09 07:57] MED LIST changes: -CLEO150C PO
[2016-11-09] MEDS ORDERED: ACETAMINOPHEN 325 MG TAB PO ONE (09:15)
[2016-11-09] MEDS ORDERED: traMADol 50 MG TAB PO ONE (09:15)
[2016-11-09 10:43] VITALS: BP 134/74
[2016-11-09] MEDS ORDERED: ULTR50TA8 PO (10:53)
== END 2016-11-09 11:08 | disposition home or self-care (01) ==
LOC: M ED 07:57
DX: M54.30 Sciatica, unspecified side (principal); F17.200 Nicotine dependence, unspecified, uncomplicated; Z88.6 Allergy status to analgesic agent

== ENCOUNTER 2016-11-21 21:56 | Emergency (ER) | payer OTHER ==
[~2016-11-21] VITALS: Ht 154.9 cm; Wt 50.0 kg
[2016-11-21] MEDS ORDERED: ULTR50TA8 PO (23:58)
[2016-11-21] MEDS ORDERED: AUGM875T28 PO (23:58)
[2016-11-22] MEDS ORDERED: AUGMENTIN 875 MG TAB PO ONE
[2016-11-22] MEDS ORDERED: traMADol 50 MG TAB PO ONE
[2016-11-22 00:02] VITALS: BP 132/64
== END 2016-11-22 00:05 | disposition home or self-care (01) ==
LOC: M ED 21:56
DX: K02.9 Dental caries, unspecified (principal); K05.10 Chronic gingivitis, plaque induced; Z88.8 Allergy status to other drugs, medicaments and biological substances; F17.210 Nicotine dependence, cigarettes, uncomplicated

== ENCOUNTER 2016-12-20 19:42 | Emergency (ER) | payer OTHER ==
[~2016-12-20] VITALS: Ht 154.9 cm; Wt 50.0 kg
[2016-12-20] MEDS ORDERED: LIDOCAINE W/EPINEPHRINE 1% 20ML VIAL SC ONE (23:15)
[2016-12-20] MEDS ORDERED: CETACAINE SPRAY 20GM (FLOOR STOCK) TOP ONE (23:15)
[2016-12-20] MEDS ORDERED: CLEO150C PO (23:26)
[2016-12-20 23:39] VITALS: BP 123/58
== END 2016-12-20 23:40 | disposition home or self-care (01) ==
LOC: M ED 19:42
DX: K02.9 Dental caries, unspecified (principal); G89.29 Other chronic pain; M54.9 Dorsalgia, unspecified; F17.200 Nicotine dependence, unspecified, uncomplicated; Z88.6 Allergy status to analgesic agent

== ENCOUNTER 2023-12-03 09:13 | Emergency (ER) | payer MEDICAID, OTHER ==
[~2023-12-03] VITALS: Ht 154.9 cm; Wt 58.1 kg
[2023-12-03 09:13] VITALS: BP 132/92; TEMP 97; O2SAT 96
[~2023-12-03 09:13] MED LIST changes: +CLEO150C PO; +ZOFR4TAB14 PO; -ZOFR4TAB3 PO
[2023-12-03] MEDS ORDERED: LEVO50TA5 (09:21)
[2023-12-03] MEDS ORDERED: ATOR1TAB19 (09:21)
== END 2023-12-03 10:33 | disposition left against medical advice (07) ==
LOC: M ED 09:13
DX: Z53.21 Procedure and treatment not carried out due to patient leaving prior to being seen by health care provider (principal)